=== PATIENT | male | born 1940 | race Caucasian/White ===

== ENCOUNTER → 2023-12-28 07:22 | Outpatient (REF) | payer BC, SELFPAY | LOC: DHCBC/DCA 07:22 | PROVIDERS: ATTENDING PHYSICIAN Internal Medicine Cardiovascular Disease; FAMILY PHYSICIAN Family Medicine | DX: Z87.898 Personal history of other specified conditions (principal); R06.02 Shortness of breath; R07.89 Other chest pain | CPT/HCPCS: 78452; 93017; A9500; J2785 ==

== ENCOUNTER → 2024-01-02 07:16 | Outpatient (REF) | payer BC, SELFPAY | LOC: HWRCS 07:16 | PROVIDERS: ATTENDING PHYSICIAN Internal Medicine Cardiovascular Disease; FAMILY PHYSICIAN Family Medicine | DX: R06.02 Shortness of breath (principal) | CPT/HCPCS: 93306 ==